=== PATIENT | female | born 1945 | race Caucasian/White ===

== ENCOUNTER 2018-10-31 10:11 | Emergency (ER) | payer MEDICARE ==
[2018-10-31] MEDS ORDERED: NS 0.9% 1000 ML* 1,000 ML IV ONE (10:28)
--- NOTE | 2018-10-31 10:45 | ED ---
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 She reports being diaphoretic, nausea, and dizziness. She says she has recently been waking up at night to urinate frequently. She states she had two cups of coffee prior to feeling ill. She says she has had similar episodes in the past but has denied medical care. Pt denies LOC. - History Of Current Complaint Chief Complaint: EDSyncope Time Seen by Provider: 10/31/18 10:27 Hx Obtained From: Patient Onset/Duration: Sudden Onset Timing: Minutes Context: Witnessed Associated Head Trauma: No Associated Signs And Symptoms: Diaphoresis, Dizzy, Lightheadedness, Vomiting - Risk Factors Cardiac Risk Factors: Negative - Allergies/Home Medications Allergies/Adverse Reactions: Allergies Allergy/AdvReac Type Severity Reaction Status Date / Time No Known Allergies Allergy Verified 10/31/18 10:27 Home Medications: Home Medications NK [No Home Medications Reported] 10/31/18 [History Confirmed 10/31/18] PMH/Surg Hx/FS Hx/Imm Hx Cardiovascular History: Denies: Hx Coronary Artery Disease Respiratory History: Denies: Hx Asthma Musculoskeletal History: Denies: Hx Osteoporosis - Cancer History Hx Chemotherapy: No Hx Radiation Therapy: No Infectious Disease History: No Infectious Disease History: Denies: Traveled Outside the [place] in Last 30 Days - Family History Known Family History: Negative: Cardiac Disease, Hypertension - Social History Alcohol Use: None Substance Use Type: Reports: None Smoking Status (MU): Never Smoked Tobacco Review of Systems Positive: Skin Diaphoresis Positive: Vomiting, Nausea Neurological: Other - Dizziness Positive: Syncope - Near-syncope All Other Systems Reviewed And Are Negative: Yes Physical Exam - Summary Physical Exam Summary: GENERAL: Patient is a well-developed and nourished F who is lying comfortable in the stretcher. Patient is not in any acute respiratory distress. HEAD AND FACE: Normocephalic EYES: PERRLA, EOMI x 2. EARS: Hearing grossly intact. MOUTH: Oropharynx within normal limits. NECK: Supple, trachea is midline, no adenopathy, no JVD, no carotid bruit. CHEST: Symmetric, no tenderness at palpation LUNGS: Clear to auscultation bilaterally. No wheezing or crackles. CVS: Regular rate and rhythm, S1 and S2 present, no murmurs or gallops appreciated. ABDOMEN: Soft, non-tender. Bowel sounds are normal. No abdominal abnormal pulsations. EXTREMITIES: Full ROM in all major joints, no edema, no cyanosis or clubbing. NEURO: Alert and oriented x 3. No acute neurological deficits. Speech is normal and follows commands. SKIN: Dry and warm Triage Information Reviewed: Yes Vital Signs On Initial Exam: Initial Vitals Temp Pulse Resp BP Pulse Ox 97.4 F 77 13 157/76 98 10/31/18 10:23 10/31/18 10:23 10/31/18 10:23 10/31/18 10:23 10/31/18 10:23 Vital Signs Reviewed: Yes Diagnostics - Vital Signs Vital Signs Temp Pulse Resp BP Pulse Ox 10/31/18 10:23 97.4 F 77 13 157/76 98 - Laboratory Result Diagrams: 10/31/18 10:42 10/31/18 10:42 Lab Statement: Any lab studies that have been ordered have been reviewed, and results considered in the medical decision making process. - Radiology CXR Radiology Interpretation Completed By: Radiologist Summary of Radiographic Findings: No active cardiopulmonary disease. ED Provider has reviewed this report. 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 When attempting to admit her for syncope, she refused when speaking to the hospitalist. She will be discharged AMA. - Diagnoses Provider Diagnoses: Syncope - Physician Notifications Discussed Care of Patient With: Albert Deshpande - Hospitalist Time Discussed With Above Provider: 12:19 Instructed by Provider To: Admit As Inpatient - Patient refused admission AMA Discharge - Sign-Out/Discharge Documenting (check all that apply): Patient Departure - Discharge AMA - Discharge Plan Condition: Stable Disposition: AGAINST MEDICAL ADVICE Patient Education Materials: Syncope (ED) Referrals: Renee Phan MD [Primary Care Provider] - Additional Instructions: Return to ED with any new or worsening symptoms. - Billing Disposition and Condition Condition: STABLE Disposition: Against Medical Advice - Attestation Statements Document Initiated by Scribe: Yes Documenting Scribe: Martin Layne Provider For Whom Scribe is Documenting (Include Credential): Srinivas Flower MD Scribe Attestation: Martin Conn scribed for Srinivas Flower MD on 11/01/18 at 1036. Scribe Documentation Reviewed: Yes Provider Attestation: The documentation as recorded by the scribe, Martin Layne accurately reflects the service I personally performed and the decisions made by me, Azalea Flower MD Status of Scribe Document: Viewed
[2018-10-31 10:51] LABS: Hematocrit 39 % (35-47); Hemoglobin 12.4 g/dl (12.0-16.0); Mean Corpuscular HGB Conc 32 g/dl (31-36); Mean Corpuscular Hemoglobin 22 pg (27-31); Mean Corpuscular Volume 70 fL (80-97); Mean Platelet Volume 7.7 fL (7.4-10.4); Platelet Count 338 10^3/ul (150-450); Red Blood Count 5.62 10^6/ul (4.00-5.40); Red Cell Distribution Width 15 % (10.5-15); White Blood Count 14.4 10^3/ul (3.5-10.8)
[2018-10-31 11:07] LABS: Albumin 4.1 g/dL (3.2-5.2); Albumin/Globulin Ratio 1.4 (1-3); BUN/Creatinine Ratio 18.5 (8-20); Calcium 9.4 mg/dL (8.6-10.3); EGFR Non-African American 59.5 (>60); Globulin 2.9 g/dL (2-4); Magnesium 1.8 mg/dL (1.9-2.7); Potassium 3.8 mmol/L (3.5-5.0); Total Bilirubin 0.5 mg/dL (0.2-1.0)
[2018-10-31 11:10] LABS: Activated Partial Thrombo Time 27.7 seconds (26.0-36.3); INR 0.97 (0.77-1.02)
[2018-10-31 11:24] LABS: ABS Basophils 0.1 10^3/ul (0-0.2); ABS Eosinophils 0.2 10^3/ul (0-0.6); ABS Monocytes 0.8 10^3/ul (0-0.8); ABS Neutrophils 8.3 10^3/ul (1.5-7.7); ABS Nucleated RBC 0 10^3/ul; Eosinophil % 1.1 %; Lymphocyte % 34.7 %; Nucleated Red Blood Cells % 0
[2018-10-31 12:22] LABS: Urine Appearance Cloudy; Urine Bilirubin Negative (Negative); Urine Blood Negative (Negative); Urine Color Yellow; Urine Glucose Negative (Negative); Urine Ketones 2+ (Negative); Urine Nitrite Negative (Negative); Urine Protein Negative (Negative); Urine Specific Gravity 1.013 (1.010-1.030); Urine Urobilinogen Negative (Negative)
[2018-10-31 12:28] LABS: TSH (Thyroid Stimulating Horm) 4.37 mcIU/mL (0.34-5.60)
[2018-10-31 14:52] VITALS: BP 163/93
== END 2018-10-31 12:50 | disposition left against medical advice (07) ==
LOC: ED 10:11
DX: R55 Syncope and collapse (principal); R42 Dizziness and giddiness; R11.2 Nausea with vomiting, unspecified
CPT/HCPCS: 36415; 71045; 80053; 81003; 83605; 83735; 83880; 84443; 84484; 85025; 85060; 85379; 85610; 85730; 87040; 93005; 96360; 99284